=== PATIENT | male | born 1960 | race Caucasian/White ===

== ENCOUNTER 2017-10-16 10:59 | Outpatient (CLI) | payer BC ==
[2017-10-16] VITALS (22 sets, daily range): BP systolic 140–172; BP diastolic 90–110
== END 2017-10-16 23:59 | disposition home or self-care (01) ==
LOC: CARD DIAG 10:59
PROVIDERS: ATTEND Internal Medicine Cardiovascular Disease
DX: R42 Dizziness and giddiness (principal); R55 Syncope and collapse
CPT/HCPCS: 93660